=== PATIENT | female | born 1945 | race Caucasian/White ===

== ENCOUNTER → 2017-05-02 | Outpatient (CLI) | payer MEDICARE, OTHER ==
--- NOTE | ~2017-05-02 | ENPV ---
Vascular Lower Extremities DVT Study Procedure Demographics Patient Name AURE PRESTON Date of Study 05/02/2017 Patient Number [id number] Gender Female Date of 1945 Age 71 Visit Number [id number] Height Accession Number [id number] Weight Room Number BSA BMI Referring Joselo SANCHEZ Interpreting Yohannes Diaz MD Physician Physician Physician Ordering Physician Joselo SANCHEZ Peritoneal Dialysis Registered Nurse Drawer In Stitch Bonding Machine Mert Boo, T Conclusions Summary No evidence of deep vein thrombosis in the right lower extremity. Procedure Type of Study: Veins:Lower Extremities DVT Study, Lower Extremity Right. Indications for Study:Unilateral pain and edema. 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 Study Location:Vascular Lab. Technical Quality:Adequate visualization. - Preliminary reported to:She Josue @[id number]. Velocities are measured in cm/s ; Diameters are measured in cm Right Lower Extremities DVT Study Measurements Right 2D and Doppler Measurements + + + + +------+------+ + !Location !Visualized!Compressibility!Thrombosis!Signal!Reflux!Reflux ! ! ! ! ! ! ! !(sec) ! + + + + +------+------+ + !GSV Thigh !Yes !Yes !None !Phasic!No ! ! + + + + +------+------+ + !Common !Yes !Yes !None !Phasic!No ! ! !Femoral ! ! ! ! ! ! ! + + + + +------+------+ + !Prox !Yes !Yes !None !Phasic!No ! ! !Femoral ! ! ! ! ! ! ! + + + + +------+------+ + !Mid Femoral!Yes !Yes !None !Phasic!No ! ! + + + + +------+------+ + !Dist !Yes !Yes !None !Phasic!No ! ! !Femoral ! ! ! ! ! ! ! + + + + +------+------+ + !Popliteal !Yes !Yes !None !Phasic!No ! ! + + + + +------+------+ + !Gastroc !Yes !Yes !None ! ! ! ! + + + + +------+------+ + !PTV !Yes !Yes !None ! ! ! ! + + + + +------+------+ + !Peroneal !Yes !Yes !None ! ! ! ! + + + + +------+------+ + Left Lower Extremities DVT Study Measurements Left 2D and Doppler Measurements + + + + +------+------+ + !Location !Visualized!Compressibility!Thrombosis!Signal!Reflux!Reflux ! ! ! ! ! ! ! !(sec) ! + + + + +------+------+ + !Common !Yes !Yes !None !Phasic!No ! ! !Femoral ! ! ! ! ! ! ! + + + + +------+------+ + Signature dtt: JASPREET VELEZ dtjulian: 05/02/17 1604 Physician Self Edit
== END | disposition disaster alternative care site (69) ==
LOC: GRAD 15:30
DX: M79.89 Other specified soft tissue disorders (principal); M79.604 Pain in right leg; R79.1 Abnormal coagulation profile; Z98.890 Other specified postprocedural states